=== PATIENT | male | born 1960 | race African-American/Black ===

== ENCOUNTER 2023-04-02 15:53 | Inpatient (IN) | payer OTHER ==
[2023-04-02 19:41] VITALS: BMI 29.0
[2023-04-02] MEDS ORDERED: BENZOCAINE/MENTHOL (CHLORASEPTIC ) LOZENGE MM PRN (23:30)
[2023-04-02] MEDS ORDERED: BENZONATATE 200 MG CAPSULE PO PRN (23:30)
[2023-04-02] MEDS ORDERED: P-EPHED 60MG/TRIPROLIDI 2.5MG TABLET PO PRN (23:30)
[2023-04-02] MEDS ORDERED: NALOXONE HCL (KLOXXADO) 8 MG SPRAY NS PRN (23:30)
[2023-04-02] MEDS ORDERED: guaiFENesin 600 MG TABLET.ER (FP) PO PRN (23:30)
[2023-04-02] MEDS ORDERED: ACETAMINOPHEN 325 MG TABLET (FP) PO PRN (23:30)
[2023-04-02] MEDS ORDERED: MAGNESIUM HYDROX 2400MG/30ML ORAL SUSPENSION 30 ML CUP PO PRN (23:30)
[2023-04-02] MEDS ORDERED: NALOXONE HCL 0.4 MG/ML VIAL IM PRN (23:30)
[2023-04-02] MEDS ORDERED: MAG HYDROX/AL HYDROX/SIMETH 30 ML UNIT-DOSE CUP PO PRN (23:30)
[2023-04-02] MEDS ORDERED: DICYCLOMINE HCL 10 MG CAPSULE PO PRN (23:30)
[2023-04-02] MEDS ORDERED: LOPERAMIDE HCL 2 MG CAPSULE PO PRN (23:30)
[2023-04-02] MEDS ORDERED: ONDANSETRON *ODT* 4 MG TABLET SL PRN (23:30)
[2023-04-02] MEDS ORDERED: IBUPROFEN 400 MG TABLET (FP) PO PRN (23:30)
[2023-04-02] MEDS ORDERED: IBUPROFEN 600 MG TABLET (FP) PO PRN (23:30)
[2023-04-02] MEDS ORDERED: POLYETHYLENE GLYCOL (HEALTHYLAX) 3350 17 GM PACKET PO PRN (23:30)
[2023-04-02] MEDS ORDERED: BISMUTH SUBSALICYLATE 524 MG/30 ML PO PRN (23:30)
[2023-04-02] MEDS ORDERED: cloNIDine HCL 0.1 MG TABLET PO PRN (23:32)
[2023-04-03] MEDS ORDERED: methaDONE HCL 10 MG TABLET (FOR DETOX USE ONLY) PO ONE (09:44)
[2023-04-03] MEDS: PRENATAL VITAMINS W/ FOLIC ACID TABLET (FP) PO SCH (10:05)
[2023-04-03 10:30] LABS: HEMATOCRIT 37.9 % (35.4-49); HEMOGLOBIN 12.3 GM/dL (11.7-16.9); MCH 25.4 pg (25.7-33.7); MCHC 32.4 g/dl (32.0-35.9); MEAN CELL VOLUME 78.1 fl (80-96); MEAN PLT VOLUME 8.8 fl (7.5-11.1); PLATELET COUNT 195 10^3/uL (134-434); RBC 4.85 M/mm3 (4.00-5.60); RDW 13.6 % (11.9-15.9); WHITE BLOOD COUNT 5.4 K/mm3 (4.0-10.0)
[2023-04-03 11:01] LABS: POTASSIUM 4.4 mmol/L (3.5-5.1)
[2023-04-03 11:13] LABS: ALBUMIN 3.6 g/dl (3.4-5.0); CALCIUM 8.9 mg/dL (8.5-10.1)
[2023-04-03 11:14] LABS: BLOOD UREA NITROGEN 11.7 mg/dL (7-18)
[2023-04-03 11:16] LABS: CREATININE 0.9 mg/dL (0.55-1.3)
[2023-04-03 11:18] LABS: BILIRUBIN,TOTAL 0.6 mg/dL (0.2-1); TOT PROT 7.5 g/dl (6.4-8.2)
[2023-04-03] MEDS ORDERED: cloNIDine HCL 0.1 MG TABLET PO ONE (12:55)
[2023-04-03] MEDS: METHOCARBAMOL 500 MG TABLET PO PRN (22:20)
[2023-04-03] MEDS: THIAMINE HCL 100 MG TABLET (FP) PO SCH (22:20)
[2023-04-03] MEDS: MELATONIN 5 MG TABLETS PO SCH (22:20)
[2023-04-03] MEDS: hydrOXYzine PAMOATE 25 MG CAPSULE (FP) PO PRN (22:20)
[2023-04-04] MEDS: PRENATAL VITAMINS W/ FOLIC ACID TABLET (FP) PO SCH (10:10)
[2023-04-04 16:41] VITALS: RESP 18
[2023-04-04] MEDS: THIAMINE HCL 100 MG TABLET (FP) PO SCH (22:11)
[2023-04-04] MEDS: MELATONIN 5 MG TABLETS PO SCH (22:11)
[2023-04-04] MEDS: hydrOXYzine PAMOATE 25 MG CAPSULE (FP) PO PRN (22:11)
[2023-04-04] MEDS: METHOCARBAMOL 500 MG TABLET PO PRN (22:11)
[2023-04-05 09:18] VITALS: PULSE 60; TEMP 97.9
[2023-04-05 09:21] VITALS: BP 187/87
[2023-04-05] MEDS ORDERED: amLODIPine BESYLATE 5 MG TABLET (FP) PO SCH (10:00)
[2023-04-05] MEDS ORDERED: methaDONE HCL 10 MG TABLET (FOR DETOX USE ONLY) PO ONE (10:00)
[2023-04-05] MEDS: PRENATAL VITAMINS W/ FOLIC ACID TABLET (FP) PO SCH (10:05)
== END 2023-04-05 11:00 | disposition home or self-care (01) | DRG 773 ==
LOC: YASAS 15:53 → UNDOADMIN 04-03 00:42 → Y3N 04-03 00:42
PROVIDERS: ADMIT Allergy & Immunology; ATTEND Surgery
PROC: HZ2ZZZZ Detoxification Services for Substance Abuse Treatment (ICD-10-PCS; principal; 2023-04-03)
DX: F11.23 Opioid dependence with withdrawal (principal); I10 Essential (primary) hypertension; Z87.891 Personal history of nicotine dependence; Z28.310 Unvaccinated for COVID-19; Z28.9 Immunization not carried out for unspecified reason
CPT/HCPCS: 36415; 80053; 85027; 86780; 87635; Q0162